=== PATIENT | female | born 1985 | race Caucasian/White ===

== ENCOUNTER → 2019-04-30 10:26 | Outpatient (CLI) | payer OTHER, SELFPAY ==
--- NOTE | 2019-04-30 | DI.US.S_ITS ---
PROCEDURE: US OB >= 14 WEEKS FETUS INDICATIONS: ANATOMY SCREEN OUTSIDE/PRIOR DATING DATA: Last menstrual period (LMP): 12/04/18. LMP-based estimated date of delivery (SARA): 09/10/19. First dating scan (date and location): 04/30/19. Estimated date of delivery (SARA) from first dating scan: 09/11/19. TECHNIQUE: Real-time scanning was performed of the fetus, with image documentation and biometric measurements. Endovaginal scanning: No COMPARISON: None. FINDINGS: General: A single living intrauterine gestation is present. Presentation: Vertex. Placenta: Placental position is posterior, without previa. Amniotic fluid index: 16.9 cm, normal range is 5-24 cm. heart rate: 137 beats per minute. Maternal cervical canal: 3.1 cm long. Normal lower limit is 2.5 cm. biometrics: Biparietal diameter: 21 weeks 2 days Head circumference: 21 weeks 1 day Abdominal circumference: 20 weeks Femur length: 20 weeks 5 days Estimated gestational age from initial scan: not applicable. Composite gestational age from present scan: 20 weeks 6 days Estimated weight and percentile: 356 g; 20th percentile Measurement variability for biometric dating: +/- 7 days from 14 weeks to 15 weeks 6 days gestation, +/- 10 days from 16 weeks to 21 weeks 6 days gestation, +/- 2 weeks from 22 weeks to 27 weeks 6 days gestation, +/- 3 weeks for 28 weeks gestation or later. weight reference: 4500 g or EFW >90/95% is considered macrosomia or large for gestational age. EFW <10% is small for gestational age. EFW 5% or less is considered intra-uterine growth restriction. Anatomic survey: Neuro: Ventricles are non-dilated at less than 10 mm. Cisterna magna is normal at 3-11 mm. Cerebellum is normal in size and morphology. Nuchal skin fold: Normal at less than 6 mm between 14-21 weeks gestational age. Face: Nose and lips, facial profile are normal. Spine: No evidence for spina bifida. Heart: 4-chambered heart is present, with normal ventricular outflow tracts. Diaphragm: Diaphragm is intact. Stomach: Left-sided stomach is present. Kidneys: No hydronephrosis. Normal is less than 5 mm in 2nd trimester, less than 7 mm in 3rd trimester. Cord: Placental cord insertion site not well-seen. Normal appearance of the cord insertion. Bladder: Normal in size. Extremities: All 4 extremities identified. IMPRESSION: 1. No living IUP present with a mean composite gestational age of 20 weeks 6 days corresponding to ultrasound SARA of 09/11/19. 2. Placental cord insertion site not well visualized; otherwise normal anatomic survey. Follow up recommended. Dictated by: Chester Brown [facility] Interpreted: Anu Larios MD on 04/30/2019 at 14:00 Approved by: Anu Larios MD, PhD on 04/30/2019 at 15:38
== END ==
PROVIDERS: PCP Registered Nurse; Visit Provider Midwife
DX: Z34.02 Encounter for supervision of normal first pregnancy, second trimester (principal)
CPT/HCPCS: 76811